=== PATIENT | female | born 1960 | race American Indian/Alaskan Native ===

== ENCOUNTER 2018-03-03 09:34 | Day surgery (SDC) | payer OTHER ==
[2018-03-03] MEDS ORDERED: NACL 0.9% 1000 ML 1,000 ML IV SCH (10:00)
--- NOTE | 2018-03-03 10:15 | Anesthesia Consultation ---
Anesthesia Consult and Med Hx Date of service: 03/03/18 - Airway Anesthetic Teeth Evaluation: Good ROM Head & Neck: Adequate Mental/Hyoid Distance: Adequate Mallampati Class: Class II Intubation Access Assessment: Good - Pulmonary Exam CTA: Yes - Cardiac Exam Cardiac Exam: RRR - Pre-Operative Health Status ASA Pre-Surgery Classification: ASA3 Proposed Anesthetic Plan: General - Pulmonary Hx Smoking: Yes (2 YRS A TEEN) Hx Asthma: Yes Hx Sleep Apnea: No (HIGH RISK) - Cardiovascular System Hx Hypertension: Yes (took metoprolol this AM) - Endocrine Hx Non-Insulin Dependent Diabetes: Yes - Other Systems Hx Alcohol Use: No Hx Substance Use: No Hx Cancer: No - Additional Comments Anesthesia Medical History Comments: NAC. True BMI>40.
--- NOTE | 2018-03-03 10:15 | Anesthesia Day of Surgery ---
Anesthesia Day of Surgery - Day of Surgery Patient Examined: Yes Patient H&P Reviewed: Yes Patient is NPO: Yes Beta Blockers: Yes
[2018-03-03] MEDS ORDERED: DIPRIVAN 10 MG/ML IV ONE ×2 (11:42→11:43)
--- NOTE | 2018-03-03 12:02 | Operative Report ---
Operative Report Operative Report: Date of procedure: 03/03/2018 Procedure: Incomplete Colonoscopy (Flexible sigmoidoscopy.). Attending physician: Jarvis Ortiz MD Manager Asset: Jarvis Ortiz MD Indication: Patient is a 57-year-old female who presents for screening colonoscopy for colorectal cancer screening. A colonoscopy is done to evaluate patient so that treatment may be directed based on the findings. Consent: Informed consent was obtained after advising the patient and family regarding nature of this procedure, its indications, potential benefits as well as possible complications including but not limited to bleeding perforation and adverse reaction to medication, infection as well as other cardiopulmonary complications. An informed written and verbal consent was then obtained after due opportunity was provided for questions and answers. Monitoring: Patient was monitored continuously with pulse oximetry and electrocardiographic recordings as well as blood pressure recordings. Vital signs remained stable throughout this procedure with no untoward events. Preoperative assessment: Patient was assessed immediately prior to this procedure for capacity to tolerate monitored anesthesia care and moderate sedation as well as general anesthesia. Patient's ASA classification is 2, Mallampati class is 2, Hyomental distance is 3. Instrument: [employer] video colonoscope Medications: Propofol given intravenously in divided doses. For details please refer to anesthesia records. Description of procedure: Patient was placed in the left lateral decubitus position after achieving sedation, a digital rectal examination was performed following which the colonoscope was introduced into the anal verge and advanced under direct vision to the descending colon. There was incremental stool density with poor colonoscopic preparation and increasingly poor visualization of the colon. Therefore, the colonoscope was subsequently withdrawn with careful inspection of all mucosal surfaces. Patient tolerated this procedure well and was subsequently taken to the recovery room. The following findings were noted. Findings: Patient has substantial retained stool with no underlying mucosal abnormalities. There was poor colonoscopic preparation. The proximal descending colon was not visualized. The transverse colon was not visualized. The ascending colon was not visualized. The cecum was not visualized. There were no other mucosal abnormalities seen in the examined segments. On the retroflex view at the anal verge, patient had internal hemorrhoids. Impression: Colonoscopic preparation was substantial retained stool Internal hemorrhoids. Plan: High-fiber diet. Prn stool softeners. Reschedule colonoscopy.
--- NOTE | 2018-03-03 12:03 | Discharge Summary ---
Short Stay Discharge Plan Activity: advance as tolerated Weight Bearing Status: Weight Bear as Tolerated Diet: regular Follow up with: JAIRON YIN MD [Primary Care Provider] - 7 Days
[2018-03-03] MEDS ORDERED: WATER FOR IRRIG STERILE IR ONE (12:14)
[2018-03-03 12:32] VITALS: BP 143/74
--- NOTE | 2018-03-03 14:24 | Post Anesthesia Evaluation ---
- Post Anesthesia Evaluation Patient Participated: Yes Airway Patent: Yes Stable Respiratory Function: Yes Nausea/Vomiting: No Temp > 96.8F: Yes Pain Manageable: Yes Adequeate Hydration: Yes Anesthesia Complications: No
== END 2018-03-03 09:35 | disposition home or self-care (01) ==
LOC: GIO 09:34
PROVIDERS: ATTEND Internal Medicine Gastroenterology
DX: Z12.11 Encounter for screening for malignant neoplasm of colon (principal); K64.8 Other hemorrhoids; I10 Essential (primary) hypertension; E11.9 Type 2 diabetes mellitus without complications; J45.909 Unspecified asthma, uncomplicated
CPT/HCPCS: 45378; 82962; J2704